=== PATIENT | female | born 1950 | race African-American/Black ===

== ENCOUNTER 2016-06-23 10:38 | Day surgery (SDC) | payer OTHER ==
[2016-06-18 14:04] VITALS: BMI 31.7
[2016-06-23 11:01] VITALS: TEMP 97.9
[2016-06-23] MEDS ORDERED: PROPOFOL 20 ML ONE (12:03)
[2016-06-23 12:50] VITALS: BP 136/70; PULSE 86
--- NOTE | 2016-06-24 11:49 | PATH ---
Surgical Pathology Report Patient Name: ALEJANDRA SHANKS [facility]. Rec. #: [id number] /Age/Gender: 1950 (Age: 65) / F Account: [id number] Location: [facility]-ENDOSCOPY Taken: 06/23/2016 Received: 06/23/2016 Reported: 06/24/2016 Physicians: Baldomero Fleming M.D. Specimen(s) Received A: BX DUODENUM B: BX ANTRUM Clinical History Peptic ulcer disease Epigastric pain, rule out celiac disease, gastritis Final Diagnosis A. DUODENUM, BIOPSY: DUODENAL MUCOSA WITH NO PATHOLOGIC CHANGES. NO HISTOLOGIC EVIDENCE OF GLUTEN SENSITIVE ENTEROPATHY (CELIAC SPRUE) IDENTIFIED. B. STOMACH, ANTRUM, BIOPSY: MODERATE CHRONIC ACTIVE GASTRITIS. IMMUNOSTAIN FOR H. PYLORI IS POSITIVE (MODERATE TO MANY ORGANISMS). Electronically Signed Philip Bernard M.D. Gross Description A. Received in formalin, labeled "duodenum" are 2 pappas, irregular portions of soft tissue measuring 0.5 and 0.7 cm. in greatest dimension. The specimens are submitted in toto in one cassette. B. Received in formalin, labeled "antrum" are 2 pappas, irregular portions of soft tissue measuring 0.3 and 0.5 cm. in greatest dimension. The specimens are submitted in toto in one cassette. 06/23/201606/23/2016
== END 2016-06-23 13:00 | disposition home or self-care (01) ==
LOC: FASU-ENDO 10:38
PROVIDERS: ATTEND Internal Medicine Gastroenterology
PROC: 0DB98ZX Excision of Duodenum, Via Natural or Artificial Opening Endoscopic, Diagnostic (ICD-10-PCS; principal; 2016-06-23 12:02)
PROC: 0DB68ZX Excision of Stomach, Via Natural or Artificial Opening Endoscopic, Diagnostic (ICD-10-PCS; 2016-06-23 12:02)
DX: K29.50 Unspecified chronic gastritis without bleeding (principal); B96.81 Helicobacter pylori [H. pylori] as the cause of diseases classified elsewhere; K29.80 Duodenitis without bleeding
CPT/HCPCS: 88305-TC; 88342-TC

== ENCOUNTER 2021-03-23 00:30 | Emergency (ER) | payer OTHER ==
[2021-03-23 01:03] VITALS: TEMP 97.9; BMI 31.4
[2021-03-23] MEDS ORDERED: LOSARTAN POTASSIUM 50 MG TABLET PO ONE (03:01)
[2021-03-23] MEDS ORDERED: LOSARTAN POTASSIUM 50 MG TABLET ONE (03:36)
[2021-03-23 04:09] LABS: EOS % 2.7 % (0-4.5); HEMATOCRIT 40.3 % (32.4-45.2); HEMOGLOBIN 13.7 GM/dL (10.7-15.3); LYMPH % 33.8 % (8-40); MCH 30.4 pg (25.7-33.7); MEAN CELL VOLUME 89.4 fl (80-96); MEAN PLT VOLUME 6.7 fl (7.5-11.1); MONO % 5.3 % (3.8-10.2); NEUT % 56.2 % (42.8-82.8); PLATELET COUNT 565 10^3/uL (134-434); RBC 4.51 M/mm3 (3.60-5.2); WHITE BLOOD COUNT 5.8 K/mm3 (4.0-10.0)
[2021-03-23 04:37] LABS: CHLORIDE 107 mmol/L (98-107); SODIUM 141 mmol/L (136-145)
[2021-03-23 04:39] LABS: CALCIUM 9.2 mg/dL (8.5-10.1)
[2021-03-23 04:40] LABS: ALBUMIN 3.7 g/dl (3.4-5.0); ANION GAP 5 MMOL/L (8-16); CO2 28 mmol/L (21-32)
[2021-03-23 04:42] LABS: GLUCOSE,RANDOM 116 mg/dL (74-106)
[2021-03-23 04:43] LABS: CREATININE 0.8 mg/dL (0.55-1.3); SGOT/AST 22 U/L (15-37); SGPT/ALT 19 U/L (13-61)
[2021-03-23 04:44] LABS: BILIRUBIN,TOTAL 0.5 mg/dL (0.2-1)
[2021-03-23 04:45] LABS: TOT PROT 8.1 g/dl (6.4-8.2)
[2021-03-23 04:46] LABS: ALK PHOS 88 U/L (45-117)
[2021-03-23 05:25] VITALS: BP 158/76; PULSE 76
[2021-03-23 06:01] LABS: MAGNESIUM 1.9 mg/dL (1.8-2.4)
== END 2021-03-23 05:25 | disposition home or self-care (01) ==
LOC: JER 00:30
DX: I10 Essential (primary) hypertension (principal)
CPT/HCPCS: 36415; 71046-TC-FY; 80053; 82550; 82553; 83735; 84484; 85025; 93005; 93010; 99285-25

== ENCOUNTER 2021-05-13 19:43 | Emergency (ER) | payer OTHER ==
[2021-05-13 20:07] VITALS: BP 168/92; PULSE 93; TEMP 99; BMI 32.5
== END 2021-05-14 00:27 | disposition home or self-care (01) ==
LOC: JER 19:43
DX: M71.22 Synovial cyst of popliteal space [Baker], left knee (principal)
CPT/HCPCS: 93971-TC; 99284-25

== ENCOUNTER 2022-11-04 07:36 | Emergency (ER) | payer OTHER ==
[2022-11-04 07:43] VITALS: BP 172/99; PULSE 81; RESP 16; TEMP 98.2; BMI 29.4
== END 2022-11-04 10:48 | disposition home or self-care (01) ==
LOC: JERFT 07:36 → JER 07:36 → JERFT 10:48
DX: M25.562 Pain in left knee (principal); R22.42 Localized swelling, mass and lump, left lower limb
CPT/HCPCS: 73562-TC-LT-FY; 93971-TC; 99284-25

== ENCOUNTER 2023-08-29 08:45 | Emergency (ER) | payer OTHER ==
[2023-08-29 08:57] VITALS: BP 154/75; PULSE 80; RESP 18; TEMP 98; BMI 29.7
== END 2023-08-29 11:54 | disposition home or self-care (01) ==
LOC: JERFT 08:45
DX: S00.12XA Contusion of left eyelid and periocular area, initial encounter (principal); S70.12XA Contusion of left thigh, initial encounter; M79.652 Pain in left thigh; W06.XXXA Fall from bed, initial encounter; Y93.84 Activity, sleeping; Y92.003 Bedroom of unspecified non-institutional (private) residence as the place of occurrence of the external cause
CPT/HCPCS: 70486-TC; 99284-25